=== PATIENT | male | born 1985 | race Two or more races ===

== ENCOUNTER → 2025-03-16 | Emergency (ER) | payer OTHER ==
[~2025-03-16] VITALS: Ht 182.9 cm; Wt 95.3 kg
[~2025-03-16] MED LIST: AMOX-CLAV 875-1 EACH PO; FAMOTIDINE/PF 20 MG/2 ML VIAL IV PUSH ONE; FAMOTIDINE/PF 20 MG/2 ML VIAL ONE; INTESTINEX680 M1 PO; PEPCID AC20 MG PO; PIPERACILLIN/TAZOBACTAM SODIUM 3.375 GM VIAL IV ONE
[2025-03-16 15:12] LABS: BASO % 0.7 % (0.1-1.2); EOS # 0.65 (0.04-0.54); EOS % 4.6 % (0.7-7.0); LYMPH # 2.13 (1.18-3.74); LYMPH % 14.9 % (19.3-53.1); MEAN PLATELET VOLUME 11.10 fl (9.4-12.4); MONO # 1.30 (0.24-0.82); MONO % 9.1 % (4.7-12.5); NEUT # 9.98 (1.56-6.13); NEUT % 70.1 % (34.0-71.1); RED CELL DISTRIBUTION WIDTH 13.0 % (11.6-14.4)
[2025-03-16 15:35] LABS: ERYTHROCYTE SEDIMENTATION RATE 17 mm/hr (0-15); INR 1.06
[2025-03-16 15:46] LABS: ALT/SGPT 52.0 U/L (12-78); AST/SGOT 28.0 U/L (15-37); BILIRUBIN TOTAL 0.52 mg/dL (0.3-1.2); BUN CREA RATIO 11.0 (7.0-25.0); CREATININE SERUM 1.12 mg/dL (0.70-1.30); GFR 72.99; GLOBULINA 3.4 G/DL (2.4-3.5); GLUCOSE FASTING 98.0 mg/dL (65-100); OSMOLALITY SERUM 283.0 MOSM/KG (275-295)
== END | disposition home or self-care (01) ==
LOC: ER 11:35
PROVIDERS: Student in an Organized Health Care Education/Training Program
DX: L05.91 Pilonidal cyst without abscess (principal)